=== PATIENT | male | born 1965 | race Caucasian/White ===

== ENCOUNTER 2020-01-18 12:10 | Emergency (ER) | payer OTHER ==
[~2020-01-18] VITALS: Ht 162.6 cm; Wt 81.7 kg
[2020-01-18] MEDS ORDERED: LISINOPRIL-HCT1 EAC2 PO (12:27)
[2020-01-18] MEDS ORDERED: NORCO 5-325 TA1 EAC2 PO (13:37)
[2020-01-18] MEDS ORDERED: INDOMETHACIN 2525 MG PO (13:37)
[2020-01-18 14:00] VITALS: BP 155/95
== END 2020-01-18 14:01 | disposition home or self-care (01) ==
LOC: M.ERS 12:10
DX: M25.561 Pain in right knee (principal); I10 Essential (primary) hypertension; M10.9 Gout, unspecified; F17.210 Nicotine dependence, cigarettes, uncomplicated